=== PATIENT | male | born 1990 | race Hispanic/Latino ===

== ENCOUNTER → 2021-01-02 | Outpatient (CLI) | payer OTHER | LOC: MRI 10:29 | PROVIDERS: ATTEND Family Medicine | DX: M54.2 Cervicalgia (principal); R29.898 Other symptoms and signs involving the musculoskeletal system | CPT/HCPCS: 72141 ==

== ENCOUNTER → 2021-01-23 | Outpatient (CLI) | payer OTHER | LOC: MRI 12:44 | PROVIDERS: ATTEND Family Medicine | DX: R29.898 Other symptoms and signs involving the musculoskeletal system (principal); M54.5 Low back pain; R20.0 Anesthesia of skin | CPT/HCPCS: 72146; 72148 ==